=== PATIENT | male | born 1980 | race African-American/Black ===

== ENCOUNTER 2017-05-08 01:58 | Emergency (ER) | payer SELFPAY ==
[2017-05-08] MEDS ORDERED: MOTRIN800 MG PO (05:19)
== END 2017-05-08 06:27 | disposition home or self-care (01) ==
LOC: EME 01:58
DX: S00.83XA Contusion of other part of head, initial encounter (principal); K21.9 Gastro-esophageal reflux disease without esophagitis; I10 Essential (primary) hypertension; W22.8XXA Striking against or struck by other objects, initial encounter
CPT/HCPCS: 70450; 70486; 99281; 99285